=== PATIENT | male | born 1995 | race Caucasian/White ===

== ENCOUNTER 2018-07-07 19:27 | Emergency (ER) | payer SELFPAY ==
[2018-07-07 19:36] VITALS: BP 130/80; PULSE 73; TEMP 98.4; BMI 35.9
--- NOTE | 2018-07-07 21:01 | PDOC ---
History of Present Illness - General History Source: Patient Exam Limitations: No Limitations - History of Present Illness Initial Comments: 07/07/18 21:13 The patient is a 22 year old male, with no significant PMH who presents to the emergency department with right ankle pain and swelling since earlier today. Patient states he slipped on snow and twisted his ankle. Patient reports hearing a cracking sound, but denies falling or having head trauma. Patient has not injured this ankle in the past. Patient is having right ankle pain when ambulating. The patient denies chest pain, shortness of breath, headache and dizziness. Denies fever, chills, nausea, vomit, diarrhea and constipation. Denies dysuria, frequency, urgency and hematuria. Allergies: NKA Past surgical history: None reported. Social history: No reported alcohol, drug or cigarette use. <Sarah Gaffney - Last Filed: 07/07/18 21:13> <Deirdre Barbosa - Last Filed: 07/08/18 03:16> - General Chief Complaint: Injury Stated Complaint: SLIPPED AT WORK INJURING RIGHT ANKLE Time Seen by Provider: 07/07/18 19:29 Past History <Sarah Gaffney - Last Filed: 07/07/18 21:13> - Past Medical History COPD: No Other medical history: DENIES - Suicide/Smoking/Psychosocial Hx Smoking History: Never smoked Have you smoked in the past 12 months: No Information on smoking cessation initiated: No Hx Alcohol Use: No Drug/Substance Use Hx: No Substance Use Type: None <Deirdre Barbosa - Last Filed: 07/08/18 03:16> - Past Medical History Allergies/Adverse Reactions: Allergies Allergy/AdvReac Type Severity Reaction Status Date / Time No Known Allergies Allergy Verified 07/07/18 19:28 Home Medications: Ambulatory Orders NK [No Known Home Medication] 07/07/18 Review of Systems - Review of Systems Able to Perform ROS?: Yes Comments:: 07/07/18 21:13 ADULT ROS GENERAL/CONSTITUTIONAL: No fever or chills. No weakness. HEAD, EYES, EARS, NOSE AND THROAT: No change in vision. No ear pain or discharge. No sore throat. CARDIOVASCULAR: No chest pain or shortness of breath. RESPIRATORY: No cough, wheezing, or hemoptysis. GASTROINTESTINAL: No nausea, vomiting, diarrhea or constipation. GENITOURINARY: No dysuria, frequency, or change in urination. MUSCULOSKELETAL: No muscle swelling or pain. No neck or back pain. (+) Right ankle pain and swelling. SKIN: No rash NEUROLOGIC: No headache, vertigo, loss of consciousness, or change in strength/ sensation. ENDOCRINE: No increased thirst. No abnormal weight change. HEMATOLOGIC/LYMPHATIC: No anemia, easy bleeding, or history of blood clots. ALLERGIC/IMMUNOLOGIC: No hives or skin allergy. <Sarah Gaffney - Last Filed: 07/07/18 21:13> *Physical Exam - Vital Signs Last Vital Signs Temp Pulse Resp BP Pulse Ox 98.4 F 73 16 130/80 100 07/07/18 19:30 07/07/18 19:30 07/07/18 19:30 07/07/18 19:30 07/07/18 19:30 - Physical Exam Comments: 07/07/18 21:14 ADULT EXAM GENERAL: Awake, alert, and fully oriented, in no acute distress HEAD: No signs of trauma EYES: PERRLA, EOMI, sclera anicteric, conjunctiva clear ENT: Auricles normal inspection, hearing grossly normal, nares patent, oropharynx clear without exudates. Moist mucosa NECK: Normal ROM, supple, no lymphadenopathy, JVD, or masses LUNGS: Breath sounds equal, clear to auscultation bilaterally. No wheezes, and no crackles HEART: Regular rate and rhythm, normal S1 and S2, no murmurs, rubs or gallops ABDOMEN: Soft, nontender, normoactive bowel sounds. No guarding, no rebound. No masses EXTREMITIES: Normal range of motion. No clubbing or cyanosis. No cords, erythema. (+)Moderate edema of the right ankle. Minimal tenderness to the lateral and medial malleolus. No ligamentous instability. No foot tenderness. Neurovascularly intact. NEUROLOGICAL: Cranial nerves II through XII grossly intact. Normal speech, normal gait SKIN: Warm, Dry, normal turgor, no rashes or lesions noted. <Sarah Gaffney - Last Filed: 07/07/18 21:13> - Vital Signs Last Vital Signs Temp Pulse Resp BP Pulse Ox 98.4 F 73 16 130/80 100 07/07/18 19:30 07/07/18 19:30 07/07/18 19:30 07/07/18 19:30 07/07/18 19:30 <Deirdre Barbosa - Last Filed: 07/08/18 03:16> ED Treatment Course - RADIOLOGY Radiology Studies Ordered: Category Date Time Status ANKLE-RIGHT [RAD] Stat Radiology 07/07/18 19:34 Taken <Deirdre Barbosa - Last Filed: 07/08/18 03:16> Progress Note - Progress Note Progress Note: Documentation has been prepared under my direction and personally reviewed by me in its entirety. I attest that this documented accurately reflects all work, treatment, procedures and medical decision making performed by me. <Deirdre Barbosa - Last Filed: 07/08/18 03:16> Medical Decision Making - Medical Decision Making As noted above, this 22-year-old man, employed at [employer], turned his right foot earlier today on slippery surface. Since then, he has had pain in the lateral and medial malleolus areas (lateral worse than medial) of ankle with weightbearing. No previous history of right ankle/foot injury. Exam as noted. Right ankle x-ray performed and preliminary interpretation by me: No evidence of acute fracture/dislocation. Clinical presentation most consistent with right ankle sprain. Removable ankle stirrup splint applied. Patient given crutches for crutch walking for the next 2-3 days. Crutch walking instruction given. He should elevate and ice the ankle as much as possible over the next 48 hours. Patient should not work until Monday, July 18. The patient has continued pain with weightbearing prior to the , he should follow-up with his general medical doctor or with orthopedics surgery (Dr.Ilan dove) <Deirdre Barbosa - Last Filed: 07/08/18 03:16> *DC/Admit/Observation/Transfer - Attestations Scribe Attestion: 07/07/18 21:14 Documentation prepared by Sarah Gaffney, acting as medical delivery driver for Deirdre Barbosa MD. <Sarah Gaffney - Last Filed: 07/07/18 21:13> <Deirdre Barbosa - Last Filed: 07/08/18 03:16> Diagnosis at time of Disposition: Ankle sprain Qualifiers: Encounter type: initial encounter Involved ligament of ankle: tibiofibular ligament Laterality: right Qualified Code(s): S93.431A - Sprain of tibiofibular ligament of right ankle, initial encounter - Discharge Dispostion Disposition: HOME Condition at time of disposition: Stable - Referrals Referrals: Anthony Centeno MD [Staff Physician] - - Patient Instructions Printed Discharge Instructions: Ankle Sprain Additional Instructions: ice/elevate ankle as much as possible for next 2 days crutches for ambulation for 2-3 days ankle splint during day for the next 10 days ibuprofen/naproxen/acetaminophen for pain no work until 07/18 followup with orthopedic group (Dr Centeno) if pain/swelling continues - Post Discharge Activity Forms/Work/School Notes: Back to Work
== END 2018-07-07 21:36 | disposition home or self-care (01) ==
LOC: FER 19:27
PROC: 2W3QX1Z Immobilization of Right Lower Leg using Splint (ICD-10-PCS; principal; 2018-07-07)
DX: S93.431A Sprain of tibiofibular ligament of right ankle, initial encounter (principal); X50.0XXA Overexertion from strenuous movement or load, initial encounter; X50.9XXA Other and unspecified overexertion or strenuous movements or postures, initial encounter; Y93.01 Activity, walking, marching and hiking; Y92.89 Other specified places as the place of occurrence of the external cause
CPT/HCPCS: 73610-TC-RT-FY; 99281-25